=== PATIENT | female | born 1960 | race Caucasian/White ===

== ENCOUNTER 2021-08-01 10:43 | Outpatient (CLI) | payer OTHER | END 2021-08-01 10:44 | disposition home or self-care (01) | LOC: CSHMAMMO 10:43 | PROVIDERS: ATTEND Family Medicine | DX: Z12.31 Encounter for screening mammogram for malignant neoplasm of breast (principal); Z80.3 Family history of malignant neoplasm of breast | CPT/HCPCS: 77063; 77067 ==

== ENCOUNTER 2022-01-23 09:56 | Outpatient (CLI) | payer OTHER | END 2022-01-23 09:57 | disposition home or self-care (01) | LOC: CSHMAMMO 09:56 | PROVIDERS: ATTEND Family Medicine | DX: M85.80 Other specified disorders of bone density and structure, unspecified site (principal) | CPT/HCPCS: 77080 ==

== ENCOUNTER 2022-08-28 10:00 | Outpatient (CLI) | payer OTHER | END 2022-08-28 10:01 | disposition home or self-care (01) | LOC: CSHMAMMO 10:00 | PROVIDERS: ATTEND Family Medicine | DX: Z12.31 Encounter for screening mammogram for malignant neoplasm of breast (principal); Z80.3 Family history of malignant neoplasm of breast | CPT/HCPCS: 77063; 77067 ==